=== PATIENT | male | born 1950 | race Caucasian/White ===

== ENCOUNTER → 2017-06-08 | Outpatient (CLI) | payer MEDICARE, OTHER | END | disposition home or self-care (01) | LOC: GMAL 10:48 | PROVIDERS: ATTEND Family Medicine | DX: Z00.01 Encounter for general adult medical examination with abnormal findings (principal); R53.82 Chronic fatigue, unspecified; E83.42 Hypomagnesemia ==

== ENCOUNTER → 2017-08-06 | Outpatient (CLI) | payer MEDICARE, OTHER ==
--- NOTE | 2017-08-06 16:12 | US ---
EXAM DESCRIPTION: Aorta: Ultrasound. CLINICAL HISTORY: AAA COMPARISON: Ultrasound aorta 04/09/2014. Ultrasound abdominal 05/21/2015. CT scan of the chest and thorax on this visit. TECHNIQUE: Transcutaneous scanning: Two-dimensional and Doppler modes. FINDINGS: Abdominal aorta diameter (cm) Proximal: 4.5 x 3.2 x 3.1. Mid: 4.0 x 3.2 x 3.1. Distal: 4.4 x 3.4 x 3.1. Common Iliac diameter (mm) Right: 10. Left: 13. Minimal narrowing at the bifurcation. Other: Atherosclerotic changes and postsurgical artifact. No para-aortic mass. IMPRESSION: 1. Previous aortic repair. Consider follow-up abdominal ultrasound in 6-12 months, based upon [facility] Best Practice guidelines for imaging follow-up of abdominal aortic aneurysms. Please see below.* *AAA Size: Follow-up Recommendation (1): 2.6 - 2.9 cm Every 5 years (2) 3.0 - 3.4 cm Every 3 years 3.5 - 3.9 cm Every 12 months 4.0 - 4.4 cm Every 12 months, vasc consult rec 4.5 - 5.4 cm Every 6 months, vasc consult rec >=5.5 cm Referral to vascular surgeon recommended (1)Based upon the Society for Vascular Surgery Guidelines: J Vasc Surg. 2009 Jul;50(4 Suppl):S2-49 (2)For aortas of max castro of 2.6-2.9 cm that meet criteria for AAA (>= 1.5 x proximal normal segment) Electronically signed by: Mason Rae MD 08/06/2017 4:11 PM CDT
--- NOTE | 2017-08-06 16:24 | CT ---
EXAM DESCRIPTION: Chest w/o Contrast: CT. CLINICAL HISTORY: I42.0 COMPARISON: CT scan of thorax with IV contrast 06/26/2009. TECHNIQUE: Spiral-axial scans at 5 x 5 mm intervals through the lungs and thorax without IV contrast. 2.0 mm lung algorithm axial reconstructions. 2.0 Mm reconstructions. Total Exam DLP: 664.46 mGy-cm. This exam was performed according to our departmental dose-optimization program which includes automated exposure control, adjustment of the mA and/or kV according to patient size and/or use of iterative reconstruction technique; to reduce radiation dose to as low as reasonably achievable (ALARA). FINDINGS: Bilateral apical pleural thickening. Bilateral focal pleural thickening. Sub solid soft tissue nodule approximately 6 mm abutting the lateral horizontal fissure, versus focal thickening of the fissure, (series 4, image 68) and appears stable. No infiltrates or masses bilaterally. No pleural effusion or pneumothorax. Heterogeneously dense thyroid gland bilaterally uniform size. No soft tissue masses in the neck base. Small physiologic sized lymph nodes in the mediastinum and hilum. Sensitivity is limited due to lack of IV contrast. Normal size axillary nodes. No sub-diaphragmatic fluid or free air in the included peritoneal space. Physiologic density and size of the adrenal glands and spleen. Included pancreas is negative. Gallbladder is visualized. Small cyst in the subcapsular lateral right hepatic lobe approximately 5 mm in diameter. Stable. Spondylosis and disc degeneration in the thoracic spine. No bone destruction. IMPRESSION: 1. No significant lung recommendation disease. Bilateral scattered areas of focal pleural thickening. No solid nodule or lung more likely thickening of the lateral right horizontal fissure, stable since the prior study in 2008. No acute infiltrate or mass. No pleural effusion or pneumothorax. 2. No definite soft tissue masses or adenopathy in the base of the neck or the mediastinum/hilum. Sensitivity decreased due to lack of IV contrast. No further imaging follow-up is recommended at this time. 3. Stable cyst in the lateral right subcapsular hepatic lobe. Electronically signed by: Mason Rae MD 08/06/2017 4:22 PM CDT
== END | disposition home or self-care (01) ==
LOC: US 10:21
PROVIDERS: ATTEND Internal Medicine Cardiovascular Disease
DX: I42.0 Dilated cardiomyopathy (principal); I71.4 Abdominal aortic aneurysm, without rupture

== ENCOUNTER → 2017-08-25 | Outpatient (CLI) | payer OTHER | LOC: GMAL 10:57 | PROVIDERS: ATTEND Family Medicine | DX: D51.3 Other dietary vitamin B12 deficiency anemia (principal); E55.9 Vitamin D deficiency, unspecified ==

== ENCOUNTER → 2017-11-25 | Outpatient (CLI) | payer OTHER | LOC: GMAL 10:56 | PROVIDERS: ATTEND Family Medicine | DX: E55.9 Vitamin D deficiency, unspecified (principal) ==

== ENCOUNTER → 2018-07-06 | Outpatient (CLI) | payer OTHER | LOC: GMAL 14:09 | PROVIDERS: ATTEND Family Medicine | DX: D51.3 Other dietary vitamin B12 deficiency anemia (principal); R53.82 Chronic fatigue, unspecified; E55.9 Vitamin D deficiency, unspecified; Z12.5 Encounter for screening for malignant neoplasm of prostate | CPT/HCPCS: 82306; 82607; 84443; G0103 ==

== ENCOUNTER → 2019-01-12 | Outpatient (CLI) | payer MEDICARE | LOC: GMAL 10:13 | PROVIDERS: ATTEND Family Medicine | DX: E55.9 Vitamin D deficiency, unspecified (principal) ==

== ENCOUNTER → 2019-11-06 | Outpatient (CLI) | payer MEDICARE | LOC: GMAL 10:40 | PROVIDERS: ATTEND Family Medicine | DX: Z12.5 Encounter for screening for malignant neoplasm of prostate (principal); R53.82 Chronic fatigue, unspecified; I10 Essential (primary) hypertension; E78.49 Other hyperlipidemia | CPT/HCPCS: 82607; 84443; G0103 ==

== ENCOUNTER → 2019-11-13 | Outpatient (CLI) | payer MEDICARE | LOC: GMAL 14:38 | PROVIDERS: ATTEND Family Medicine | DX: R53.82 Chronic fatigue, unspecified (principal); R41.81 Age-related cognitive decline; R73.9 Hyperglycemia, unspecified ==

== ENCOUNTER → 2020-05-07 | Outpatient (CLI) | payer MEDICARE | LOC: GMAL 10:52 | PROVIDERS: ATTEND Family Medicine | DX: D51.3 Other dietary vitamin B12 deficiency anemia (principal); E55.9 Vitamin D deficiency, unspecified; I10 Essential (primary) hypertension; E78.49 Other hyperlipidemia; Z79.899 Other long term (current) drug therapy ==

== ENCOUNTER → 2020-09-25 | Outpatient (CLI) | payer MEDICARE | LOC: GMAL 14:35 | PROVIDERS: ATTEND Family Medicine | DX: R53.82 Chronic fatigue, unspecified (principal); E29.1 Testicular hypofunction; I10 Essential (primary) hypertension; E78.49 Other hyperlipidemia; Z79.899 Other long term (current) drug therapy ==